=== PATIENT | male | born 1980 | race Caucasian/White ===

== ENCOUNTER 2018-07-15 23:50 | Emergency (ER) | payer OTHER ==
[~2018-07-15] VITALS: Ht 172.7 cm; Wt 93.6 kg
[2018-07-16 02:34] LABS: HEMATOCRIT 41.8 % (38.0-50.0); HEMOGLOBIN 14.3 G/DL (12.5-16.6); MCH 29.8 PG (29.0-34.0); MCHC 34.2 G/DL (30.0-36.0); MCV 87.1 FL (86-99); PLATELET COUNT 217 K/uL (156-360); RBC DIS.WIDTH-CV 13.2 % (11.8-14.6); RBC DIS.WIDTH-SD 42.2 % (39-53); WHITE BLOOD COUNT 9.9 K/uL (4.1-10.2)
[2018-07-16 02:41] LABS: CHLORIDE 107 mEq/L (99-109); SODIUM 141 mEq/L (136-147)
[2018-07-16] MEDS ORDERED: PERCOCET 5/31 TABLET PO (02:42)
[2018-07-16] MEDS ORDERED: KEFLEX500 MG PO (02:42)
[2018-07-16 02:43] LABS: GLUCOSE 113 mg/dL (70-99)
[2018-07-16 02:46] LABS: CREATININE 1.3 mg/dL (0.6-1.3); GFR ESTIMATE (CALCULATED) > 59 mL/min/ (58.99-99999)
[2018-07-16 02:47] LABS: UREA NITROGEN (BUN) 16 mg/dL (9-23)
[2018-07-16 03:33] VITALS: BP 116/86
== END 2018-07-16 03:33 | disposition home or self-care (01) ==
LOC: EME 23:50
PROVIDERS: Physician Assistant
DX: L03.116 Cellulitis of left lower limb (principal); S90.822A Blister (nonthermal), left foot, initial encounter; Y93.53 Activity, golf; F17.200 Nicotine dependence, unspecified, uncomplicated
CPT/HCPCS: 73630; 80048; 85027; 99281; 99284